=== PATIENT | female | born 1925 | race Caucasian/White ===

== ENCOUNTER 2016-12-09 09:43 | Emergency (ER) | payer MEDICARE, MEDICAID ==
[~2016-12-09] VITALS: Ht 165.1 cm; Wt 77.1 kg
[~2016-12-09 09:43] MED LIST: /ZOLP6ER; ACCUPRIL40 PO; ACET50TA PO; ACET65TA; ACTONEL PO; ACTONEL35 PO; AMBI10TA; AMBI5TAB; AMBIEN5 PO; AMIT10TA2 OR; AMIT25TA2; AMITRIP25 PO; AMITRIP50 PO; ASPI81TA83; ASPI81TA83 OR; ATENOLOL50 PO; ATIV0.5T OR; BEXTRA PO; BONIVA PO; CAPT12.5; CORE12.5 OR; DARV100T OR; DARVOCET-N PO; DIGO0.126 OR; DOCU10ELUD PO; F ACCUPRIL PO; FERROUS325 PO; FLEEENE4 PR; GABA600T3; ISMO20TA; LIDODERM TOPICAL; LIPITOR10 PO; LOPR50TA; LORA2TA PO; LOTREL PO; LUMIGAN; LUMIGAN OU; METO25TA2; METOPROLOL TARTRATE; MILKSUS OR; MULTCAP PO; NEUR600T PO; NEURONTIN3 PO; NEURONTIN4 PO; NEURONTIN6 PO; NITR0.4S; NITR2OI TOP; PREPGEL TOP; REME30TA PO; SLOWTAB OR; TIMO0.254 OP; TIMOPTIC; TRAM50TA2; ULTR50TA PO; ULTRAM50 PO; VICODIN PO; WALKER; XALA0.002 OP; ZANAFLEX4 PO; ZETI10TA; ZETIA PO; ZOCO20TA PO; ZOCO40TA; ZOLO50TA OR; [UNRECOGNIZED DRUG - OTHER] OD; [UNRECOGNIZED DRUG - OTHER] PO; roxanol SL
[2016-12-09 09:45] VITALS: BP 70/40
== END 2016-12-09 10:23 | disposition left against medical advice (07) ==
LOC: M ED 09:43
DX: R03.1 Nonspecific low blood-pressure reading (principal); Z53.21 Procedure and treatment not carried out due to patient leaving prior to being seen by health care provider